=== PATIENT | male | born 1995 | race Caucasian/White ===

== ENCOUNTER 2019-05-20 09:14 | Emergency (ER) | payer OTHER, SELFPAY ==
[2019-05-20 09:16] VITALS: BP 138/74; PULSE 76; TEMP 36.5; O2SAT 98
--- NOTE | 2019-05-20 09:29 | ED.GENADUL_ITS ---
Discharge Plan Disposition Patient Disposition: HOME Condition: Fair Discharge Details Chief Complaint: GenMedical Clinical Impression: Concern about sexually transmitted disease in male without diagnosis Primary Care Provider: None,None ED Provider: Danial Ruiz Home Meds and New Rx's Prescriptions: No Action No Known Home Meds RF: 0 Discharge Instructions Instructions: Chlamydia (ED) Additional Instructions: You should refrain from sexual activity over the next few days while the antibiotics work. Contact any sexual partners to let them know that you were tested and treated. The actual test for chlamydia does not come back for 2 to 3 days. Return to the emergency department immediately if you develop any fevers, weakness, or for any other concerning or worsening symptoms at all. Medical Decision Making This patient is a 23-year-old male who presents to the emergency department with chief complaint of concern for chlamydia infection. Patient refused genital exam. I explained to him that this was a normal thing to be done when someone is concerned about chlamydia to evaluate the testicles and penis. Patient again refused. Therefore, patient will be put on ceftriaxone, azithromycin. The urine was sent for chlamydia and gonorrhea testing. He will be provided return precautions and discharge instructions. HPI I am here to get tested. This patient is a 23-year-old male who presents to the emergency department with chief complaint of wanting testing and treatment for chlamydia. His girlfriend was recently tested and treated for chlamydia. He denies any symptoms, he denies dysuria, urethral discharge or rash. No other recent illness. General Date/Time Provider Initiated Documentation: 05/20/19 09:15 . Related Data Home Medications Medication Instructions Recorded Confirmed Unknown [No Known Home Meds] 05/20/19 05/20/19 Allergies Allergy/AdvReac Type Severity Reaction Status Date / Time cat dander Allergy Unverified 05/20/19 09:19 bee stings AdvReac Mild Swelling/Ed Uncoded 05/20/19 09:19 honorio General Stated Complaint: GenMedical KIKO: 5 Review of Systems Narrative: Gen: no fevers. Card: no chest pain. Resp: No cough, difficulty breathing. Abd: no vomiting, abd pain. The rest of the 10 point review of systems is negative except as described in the HPI and above in the ROS. PFSH Medical History Allergic dermatitis due to poison bo Social History Smoking/Tobacco Use Status: Never Drug use: Never Exam Narrative Exam Narrative: Gen: no acute distress, alert. Eyes: EOMs intact. Lung: Clear to auscultation bilaterally, no respiratory distress. Card: RRR, normal S1, S2, no M/R/G. 2+ radial pulses bilaterally. Abd: soft, non-tender, no hepatosplenomegaly. Upper extremity: no evidence of trauma. Psych: alert and oriented to person, place time, normal affect. Skin: warm, intact. Course Vital Signs Vital signs: Vital Signs Temperature 36.5 C 05/20/19 09:16 Pulse 76 05/20/19 09:16 Blood Pressure 138/74 05/20/19 09:16 Pulse Oximetry 98 05/20/19 09:16 Temperature 36.5 C 05/20/19 09:16 Temperature Source Skin 05/20/19 09:16 Pulse 76 05/20/19 09:16 Blood Pressure 138/74 05/20/19 09:16 Blood Pressure Position Sitting 05/20/19 09:16 Pulse Oximetry 98 05/20/19 09:16 Oxygen Delivery Method Room Air 05/20/19 09:16 Oxygen Flow Rate 0 05/20/19 09:16 Pain Level 0 05/20/19 09:16
[2019-05-20] MEDS: cefTRIAXone 250 MG VIAL IM (10:02)
[2019-05-20] MEDS: Azithromycin 250 MG TAB 1000 MG PO (10:02)
[2019-05-20] MEDS: Lidocaine 1% Multi-Dose 50 ML VIAL (10:03)
[2019-05-20 10:23] VITALS: BP 124/75; PULSE 71; RESP 16; TEMP 36.6; O2SAT 97
[2019-05-22 15:10] LABS: GC Result Negative (Negative)
--- NOTE | 2019-05-22 16:22 | W.ED.FU ---
STD testing positive for chlamydia and negative for gonorrhea. Patient was treated with Zithromax 1000 mg p.o. x1 and Rocephin 250 mg IM x1. Patient informed of his positive result over the phone. He is still asymptomatic. He was advised to follow-up with his primary care doctor return to the emergency department if he develops any concerning symptoms.
[2019-05-23 08:33] LABS: Chlamydia Result Positive (Negative)
== END 2019-05-20 10:23 | disposition home or self-care (01) ==
PROVIDERS: Emergency Provider Emergency Medicine
DX: A74.9 Chlamydial infection, unspecified (principal); Z11.3 Encounter for screening for infections with a predominantly sexual mode of transmission
CPT/HCPCS: 87491; 87591; 96372; 99284; 99283; J0696

== ENCOUNTER 2020-10-24 07:22 | Emergency (ER) | payer OTHER, SELFPAY ==
[2020-10-24 07:26] VITALS: BP 134/69; PULSE 86; RESP 16; TEMP 36.6; O2SAT 98
--- NOTE | 2020-10-24 07:32 | ED.GENADUL_ITS ---
Discharge Plan Disposition Patient Disposition: HOME Condition: Stable Discharge Details Clinical Impression: Pharyngitis, URI with cough and congestion Primary Care Provider: None,None ED Provider: Marilin Dudley Home Meds and New Rx's Prescriptions: No Action No Known Home Meds RF: 0 Discharge Instructions Instructions: Pharyngitis (ED), Upper Respiratory Infection (ED) Additional Instructions: Your rapid strep test was negative today. At this time, your symptoms are most likely due to a viral illness which is best treated with fluids, rest, and over the counter medications. Drink plenty of fluids and get plenty of rest. Alternate tylenol and motrin as needed and directed for pain. You can try [id number] nasal decongestants such as phenylephrine, cough medication such as Robitussin, and continue the Mucinex as needed and directed. You will receive a call from care management regarding a follow-up appointment with the primary care doctor to establish care and for reevaluation. Return immediately to the emergency department if you develop any worsening or new concerning symptoms. Stand Alone Forms: Work Release Discharge Data Discharge Physician: Marilin Dudley Medical Decision Making 24-year-old male who presents with sinus congestion and pain, nasal congestion and rhinorrhea, and sore throat for the past 2 days. Recent contact with family member with strep throat. Rapid strep negative. Patient appears comfortable and nontoxic. His vitals are within normal limits. Normal TMs bilaterally. Mild to moderate posterior pharyngeal erythema but no exudates, edema and uvula is midline without evidence of peritonsillar mass, trismus, drooling or submandibular swelling. No cervical lymphadenopathy. Lungs clear bilaterally. Discussed with patient that his symptoms could likely be viral in nature. Advised that his symptoms could turn bacterial and at that time may need antibiotics. Patient states he would rather hold on any antibiotic medication unless indicated. Advised to push fluids, rest, alternate Tylenol and Motrin and continue [id number] supportive care. We will place patient on care management list to help arrange for follow-up appointment with a primary care doctor. Patient states she is interested in obtaining a Covid vaccine once he is feeling better. Medical Records Medical records reviewed: Yes I reviewed the patient's medical records. HPI General Mode of arrival: ambulatory . Date/Time Provider Initiated Documentation: 10/24/20 07:31 . Limitations to Documentation: no limitations . Information obtained by: patient . HPI Narrative: Patient is a 24-year-old male who presents to the ED with complaint of nasal congestion, clear nasal discharge, sinus pain and sore throat for the past 2 days. States he was exposed to his grandmother recently who has strep throat. Patient states he has missed some work this week due to his symptoms. He states his sore throat is bothering him the most. He has been taking Mucinex as needed. He does admit to an occasional mild cough which makes her sore throat worse otherwise denies any shortness of breath, fever or neck pain. Related Data Home Medications Medication Instructions Recorded Confirmed Unknown [No Known Home Meds] 05/20/19 10/24/20 Allergies Allergy/AdvReac Type Severity Reaction Status Date / Time cat dander Allergy Unverified 10/24/20 07:29 bee stings AdvReac Mild Swelling/Ed Uncoded 10/24/20 07:29 honorio General Stated Complaint: Sorethroat KIKO: 4 Review of Systems All systems reviewed & are unremarkable except as noted in HPI and below Constitutional Constitutional: Reports as per HPI, Denies chills and Denies fever(s) Eyes Eyes: Denies blurry vision ENT Ears, Nose, Mouth, and Throat: Denies dizziness, Reports sore throat and Denies throat swelling Cardiovascular Cardiovascular: Denies chest pain and Denies dyspnea Respiratory Respiratory: Denies cough and Denies dyspnea Gastrointestinal Gastrointestinal: Denies abdominal pain, Denies diarrhea and Denies vomiting Genitourinary Genitourinary: Denies hematuria and Denies dysuria Musculoskeletal Musculoskeletal: Denies back pain and Denies numbness Integumentary/Breasts Skin/Breast: Denies lesions and Denies rash Neurologic Neurologic: Denies dizziness, Denies localized weakness and Denies numbness Allergic/Immunologic Allergic/Immunologic: Denies throat swelling [facility] Medical History (Updated 10/24/20 @ 07:54 by Marilin Dudley DO) Allergic dermatitis due to poison bo Asthma Surgical History (Updated 10/24/20 @ 07:49 by Marilin Dudley DO) No significant past surgical history Social History Smoking/Tobacco Use Status: Never Smoking risk assessment performed?: Yes Alcohol Intake: current Alcohol Intake frequency: holidays/special occasions only Drug use: Daily Substance use type: marijuana Do you feel safe at home: Yes Do you feel safe in your relationship?: Yes Exam Const General: cooperative, healthy appearing and no acute distress HENMT Head: normal to inspection Ears: hearing grossly normal bilaterally, external ears normal and TM's normal bilaterally Face and sinus: sinus tenderness maxillary (bilateral) Mouth: oral mucosae normal Throat: uvula midline, no peritonsillar masses and posterior oropharynx abnormal erythema; no exudates Eyes General: appearance normal, both eyes and all related structures Neck Neck: normal visual inspection, no lymphadenopathy, no meningeal signs, trachea midline, supple, no anterior neck swelling and No submandibular swelling Resp Effort & Inspection: normal respiratory effort and able to speak in complete sentences Auscultation: clear to auscultation bilaterally, no rales, no rhonchi and no wheezes Cardio Rate: regular rate Rhythm: regular rhythm Skin General skin exam: no rashes or lesions noted Neuro General: patient alert, patient awake and patient oriented x3 Motor: muscle tone normal throughout Extrem General: normal to inspection and full ROM Psych Appearance: grossly normal Affect: normal affect Course Vital Signs Vital signs: Vital Signs Temperature 97.9 F 10/24/20 07:26 Pulse 86 10/24/20 07:26 Respiratory Rate 16 10/24/20 07:26 Blood Pressure 134/69 10/24/20 07:26 Pulse Oximetry 98 10/24/20 07:26 Temperature 97.9 F 10/24/20 07:26 Temperature Source Temporal Artery Scan 10/24/20 07:26 Pulse 86 10/24/20 07:26 Respiratory Rate 16 10/24/20 07:26 Respiratory Effort Non-Labored 10/24/20 07:29 Blood Pressure 134/69 10/24/20 07:26 Blood Pressure Position Sitting 10/24/20 07:26 Pulse Oximetry 98 10/24/20 07:26 Oxygen Delivery Method Room Air 10/24/20 07:26 Oxygen Flow Rate 0 10/24/20 07:26 Pain Level 2 10/24/20 07:26
== END 2020-10-24 08:06 | disposition home or self-care (01) ==
PROVIDERS: Emergency Provider Physician Assistant
DX: J02.9 Acute pharyngitis, unspecified (principal)
CPT/HCPCS: 87880; 99282; 87081

== ENCOUNTER 2020-11-13 15:53 | Emergency (ER) | payer OTHER, SELFPAY ==
[2020-11-13 15:59] VITALS: BP 120/69; PULSE 81; RESP 16; TEMP 36.8; O2SAT 98
--- NOTE | 2020-11-13 16:03 | W.ED.GENAD ---
Discharge Plan Disposition Patient Disposition: HOME Condition: Good Discharge Details Clinical Impression: Bitten by other rodent, initial encounter Primary Care Provider: None,None ED Provider: Quintin Conteh Home Meds and New Rx's Prescriptions: New cephalexin 500 mg capsule 500 mg PO QID 7 Days Qty: 28 RF: 0 Discharge Instructions Instructions: Cellulitis (ED) Additional Instructions: At this time you have a very mild infection of the skin. Please take the antibiotic Keflex as directed. It is been sent to your pharmacy [facility] here in [facility]. If you notice any spreading of the redness, worsening pain, please return immediately for reassessment. Please take a yogurt with live cultures to prevent any diarrhea. If you notice any worsening of your symptoms, or any new symptoms such as vomiting, diarrhea, fever, chills, shortness of breath, chest pain, numbness, weakness, or fainting , please return immediately to the emergency department for reevaluation. Please follow up with your primary care provider as soon as possible for reassessment and reevaluation. As always, it was a pleasure participating in your medical care today. Medical Decision Making 24-year-old male with no significant past medical history who presents today with a guinea pig bite to the base of the fifth digit on his right nondominant hand. Patient states that 2 days ago he was bitten by his domesticated nonoutdoor guinea pig. It was and aggravated scenario that caused the bite. Patient states that it felt like a small pinprick when it first happened. There was some bleeding immediately. He washed the area. Over the last 48 hours he did develop a very small amount of redness and swelling at the site of the bite. He denies any fever or chills. No spreading of the redness. No other complaints at this time. He states that he has broken bones before but this feels nothing like that. Exam demonstrates very small bite alcantara just proximal to the MCP joint of the fifth finger. No bony tenderness, no significant warmth. Very minimal redness, very minimal swelling, diameter of redness is about slightly less than 1 cm. No drainage at this time. No sausage-shaped digit. No pain with passive or active extension or flexion. Symptoms are inconsistent with flexor tenosynovitis. I did discuss with the patient imaging options including x-ray, at this time the patient has deferred and feels that the bone is not injured, and does not have pain at all there. He states his main intent is concern for potential skin infection and tetanus update. Patient's tetanus will be updated today. No evidence of fracture as there is no bony tenderness. No indication for emergent x-ray imaging at this time. We will update the patient's tetanus, prescribed Keflex every 6 hours, for 7 days for very mild, very early potential minimal cellulitis. Discussed red flags which to return. I have extensively reviewed the treatment plan and discharge instructions with the patient. I have addressed all patient concerns at this time. The patient was made aware of what symptoms to monitor for that would warrant a return to the emergency department. Discussed the plan with the patient, they demonstrate verbal understanding and agreement with our assessment and plan at this time. The documentation in this chart was dictated using [employer] dictation software. Please excuse any dictation errors. HPI General Date/Time Provider Initiated Documentation: 11/13/20 15:58. HPI Narrative: 24-year-old male with no significant past medical history who presents today with a guinea pig bite to the base of the fifth digit on his right nondominant hand. Patient states that 2 days ago he was bitten by his domesticated nonoutdoor guinea pig. It was and aggravated scenario that caused the bite. Patient states that it felt like a small pinprick when it first happened. There was some bleeding immediately. He washed the area. Over the last 48 hours he did develop a very small amount of redness and swelling at the site of the bite. He denies any fever or chills. No spreading of the redness. No other complaints at this time. He states that he has broken bones before but this feels nothing like that. Related Data Home Medications Medication Instructions Recorded Confirmed cephalexin 500 mg PO QID 7 Days #28 cap 11/13/20 Previous Rx's Medication Instructions Recorded cephalexin 500 mg PO QID 7 Days #28 cap 11/13/20 Allergies Allergy/AdvReac Type Severity Reaction Status Date / Time cat dander Allergy Unverified 11/13/20 16:04 bee stings AdvReac Mild Swelling/Ed Uncoded 11/13/20 16:04 honorio General KIKO: 4 Review of Systems All systems reviewed & are unremarkable except as noted in HPI and below [facility] Medical History Allergic dermatitis due to poison bo Asthma Surgical History No significant past surgical history Social History Smoking/Tobacco Use Status: Never Smoking risk assessment performed?: Yes Alcohol Intake: current Alcohol Intake frequency: a few times a month Drug use: Daily Substance use type: marijuana Do you feel safe at home: Yes Do you feel safe in your relationship?: Yes Exam Narrative Exam Narrative: 1.Const: Well-nourished, Well-developed, appearing stated age 2.Eyes: PERRL, no conjunctival injection, and symmetrical lids. 3.ENT: Atraumatic external nose and ears. Moist MM. Neck: Symmetric, trachea midline, No thyromegaly. 4.CVS: +S1/S2, No murmurs or gallops. Peripheral pulses 2+ and equal in all extremities. Brisk capillary refill in all extremities. 5.RESP: Unlabored respiratory effort. Clear to auscultation bilaterally. No wheezes rales or rhonchi 6.GI: Soft, Nontender/Nondistended, No hepatosplenomegaly. No guarding or rebound. 7.MSK: Normocephalic, Extremities w/o deformity. No cyanosis or clubbing. The patient's right hand demonstrates a very small superficial well-healed bite margarita just proximal to the fifth MCP joint. Minimal amount of swelling, minimal amount of redness. No bony tenderness. No sausage-shaped digit or swelling of the digit. Passive extension of the digit does not elicit any significant pain. Patient able to flex and extend well. No drainage or discharge. No significant warmth. 8.Skin: Warm, Dry. No rashes or lesions. Please see musculoskeletal distal sensation intact. Capillary refill brisk. 9.Neuro: veneer measurer II-XII grossly intact. Sensation grossly intact, no focal neurologic deficits. 10.Psych: (AAO) x3. Appropriate mood and affect
== END 2020-11-13 16:25 | disposition home or self-care (01) ==
PROVIDERS: Emergency Provider Student in an Organized Health Care Education/Training Program
DX: S61.451A Open bite of right hand, initial encounter (principal); W53.81XA Bitten by other rodent, initial encounter; L08.9 Local infection of the skin and subcutaneous tissue, unspecified
CPT/HCPCS: 90471; 99284; 99283